=== PATIENT | male | born 1970 | race Caucasian/White ===

== ENCOUNTER 2018-02-15 15:18 | Emergency (ER) | payer SELFPAY ==
[~2018-02-15] VITALS: Ht 177.8 cm; Wt 77.1 kg
[~2018-02-15 15:18] MED LIST: HYDR1TAB PO; PRM25T PO
--- NOTE | 2018-02-15 16:04 | ED GU-Male ---
General Chief Complaint: -Male Stated Complaint: HERNIA Nursing Triage Note: TO ROOM REPORTS THAT HE HAS HAD R TESTICLE PAIN FOR 1 WEEKS AT TIME REPORTS IT FEEING OF IT BEING SUCKED UP INSIDE OF HIM. Source: patient Exam Limitations: no limitations (JACQUELINE RICHMOND) History of Present Illness Date Seen by Provider: Feb 15, 2018 Time Seen by Provider: 15:59 Initial Comments Patient is a 48-year-old male who presents to the emergency room with complaints of right sided testicle pain and swelling for 1 week. 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 He states that he feels like his right testicle is sucked up inside of him. Timing/Duration: week Severity/Quality: mild Location: right flank, groin Radiation: suprapubic, right flank Activities at Onset: none Associated Symptoms: No abdominal pain, No lower back pain, No nausea/vomiting , No urinary frequency (JACQUELINE RICHMOND) Allergies and Home Medications Allergies Coded Allergies: No Known Drug Allergies (Unverified , 01/13/11) Patient Home Medication List Home Medication List Reviewed: Yes (JACQUELINE RICHMOND) Review of Systems Constitutional: see HPI; No chills EENTM: see HPI; No ear discharge, No hearing loss Respiratory: No cough, No short of breath, No wheezing Cardiovascular: No chest pain, No edema, No syncope Gastrointestinal: see HPI, abdominal pain (RLQ), constipation (has had some mild constipation the past 2 weeks.); No diarrhea, No nausea, No vomiting Genitourinary: denies burning, denies discharge, denies dysuria, denies frequency, denies hematuria Musculoskeletal: No back pain, No joint pain, No neck pain Skin: see HPI; No change in color Psychiatric/Neurological: Denies Anxiety, Denies Depressed Endocrine: Denies See HPI, Denies Excessive Sweating Hematologic/Lymphatic: See HPI; Denies Anemia (JACQUELINE RICHMOND) All Other Systemes Reviewed Negative Unless Noted: Yes (JACQUELINE RICHMOND) Past Hxmphkn-Raaelo-Itfeyl Hx Past Med/Social Hx: Reviewed Nursing Past Med/Soc Hx (JACQUELINE RICHMOND) Past Med/Social Hx: Reviewed Nursing Past Med/Soc Hx (JV SIMS MD) Patient Social History Alcohol Use: Denies Use Recreational Drug Use: Yes (METH) Smoking Status: Current Everyday Smoker Recent Foreign Travel: No Contact w/Someone Who Travel: No Recent Infectious Disease Expo: No (JACQUELINE RICHMOND STUDENT) Past Medical History Surgeries: No Cardiac: No Genitourinary: No Endocrine: No Cancer: No Psychosocial: No Integumentary: No Blood Disorders: Yes (HEP C) (JACQUELINE RICHMOND STUDENT) Family Medical History Reviewed Nursing Family Hx (JACQUELINE RICHMOND) No Pertinent Family Hx (JV SIMS MD) Physical Exam Vital Signs Vital Signs - First Documented 02/15/18 15:44 Temp 98.0 Pulse 100 Resp 18 B/P (MAP) 175/99 (124) Pulse Ox 98 O2 Delivery Room Air (JV SIMS MD) Vital Signs Capillary Refill : Less Than 3 Seconds (JACQUELINE RICHMOND STUDENT) General Appearance: WD/WN, no apparent distress HEENT: normal ENT inspection, TMs normal, pharynx normal Neck: non-tender, full range of motion Cardiovascular: regular rate, rhythm, no edema, no gallop, no JVD, no murmur Respiratory: chest non-tender, lungs clear, normal breath sounds Gastrointestinal: non tender, soft Rectal: normal exam, normal rectal tone Male: normal genitalia, normal prostate (Prostate was not boggy or tender.), no hernia, inguinal tenderness (right side), testicular tenderness (right testicle) Back: normal inspection, no CVA tenderness, no vertebral tenderness Extremities: non-tender, normal inspection, no pedal edema Neurologic/Psychiatric: alert, normal mood/affect, oriented x 3 Skin: normal color Lymphatic: no adenopathy (JACQUELINE RICHMOND STUDENT) Cardiovascular: regular rate, rhythm, no murmur Respiratory: lungs clear, normal breath sounds Male: normal genitalia, inguinal tenderness (right side), testicular tenderness (right testicle), other (there does not appear to be cremasteric reflex on the right.) Neurologic/Psychiatric: alert, oriented x 3 Skin: normal color, warm/dry (JV SIMS MD) Progress/Results/Core Measures Suspected Sepsis Recent Fever Within 48 Hours: No Infection Criteria Present: None New/Unexplained Altered Menta: No Sepsis Screen: No Definite Risk SIRS Temperature:98.0 Pulse: 100 Respiratory Rate: 18 Blood Pressure 175 /99 Mean: 124 (JACQUELINE RICHMOND STUDENT) Results/Orders Lab Results Laboratory Tests Test 02/15/18 17:13 Range/Units Urine Color YELLOW Urine Clarity CLEAR Urine pH 6 5-9 Urine Specific [place] 1.025 H 1.016-1.022 Urine Protein NEGATIVE NEGATIVE Urine Glucose (UA) NEGATIVE NEGATIVE Urine Ketones NEGATIVE NEGATIVE Urine Nitrite NEGATIVE NEGATIVE Urine Bilirubin NEGATIVE NEGATIVE Urine Urobilinogen 1 NORMAL MG/DL Urine Leukocyte Esterase 1+ H NEGATIVE Urine RBC (Auto) NEGATIVE NEGATIVE Urine RBC RARE /HPF Urine WBC 0-2 /HPF Urine Crystals NONE /LPF Urine Bacteria NEGATIVE /HPF Urine Casts NONE /LPF Urine Mucus LARGE H /LPF Urine Culture Indicated NO (JV SIMS MD) My Orders Orders - JV SIMS MD Scrotum (Testicle) [id number] (02/15/18 15:48) Ua Culture If Indicated (02/15/18 15:54) Chlamydia Trachomatis Urine (02/15/18 17:25) Neis Vern Dna Urine Test (02/15/18 17:25) Ceftriaxone Injection (Rocephin Injectio (02/15/18 17:30) Rocephin 1000mg Im (02/15/18 17:45) Lidocaine 1% (Xylocaine 1%) (02/15/18 17:45) (JV SIMS MD) Vital Signs/I&O 02/15/18 15:44 Temp 98.0 Pulse 100 Resp 18 B/P (MAP) 175/99 (124) Pulse Ox 98 O2 Delivery Room Air (JV SIMS MD) Vital Signs/I&O Capillary Refill : Less Than 3 Seconds (JACQUELINE RICHMOND STUDENT) Blood Pressure Mean: 124 Progress Note : Progress Note I have seen and evaluated the patient and agree with above except as indicated. Have directed the plan of care. Patient is here with right testicular/groin pain. 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 Notes that it is dark urine. Denies nausea and vomiting. Denies fever or chills. Denies penile discharge or pain. He is in a stable monogamous relationship. He does not use protection. Has had decreased bowel movements recently. We will check a UA and ultrasound of the scrotum. 1730:*Ultrasound complete. Questionable epididymitis. Patient has difficulty with finances currently. We will give 1 g of Rocephin IM and continue outpatient treatment with ciprofloxacin for 10 days. We did discuss hydration. I will check for GC and chlamydia via urine DNA test and if positive we will initiate treatment as indicated when results were posted. Discharged home with return precautions. Patient verbalize understanding instructions and agreement with plan. (JV SIMS MD) Diagnostic Imaging Diagonstic Imaging: Ultrasound Comments NAME: ANDREW RODRIGUEZ [facility] REC#: [id number] PT STATUS: REG ER : 1970 PHYSICIAN: JV SIMS MD ADMIT DATE: 02/15/18/ER Draft Date of Exam:02/15/18 US SCROTUM (Testicle) [id number] COMPARISON: None. TECHNIQUE: Real-time ultrasound is performed. FINDINGS: RIGHT TESTICLE: Right testicle measures 4.5 cm x 2.2 cm x 3.5 cm and appears homogenous and no focal mass is seen. Doppler imaging demonstrates normal blood flow. There is a heterogeneous 5.8 cm x 2 7 m x 3.5 cm process seen lateral to the right testis which is moderately heterogeneous and somewhat vascular, possibly related to a severe epididymitis. This does not show any significant peristalsis and does not change with Valsalva. LEFT TESTICLE: The left testicle measures 3.37 m x 2.1 cm x 3.2 cm and appears unremarkable. Left epididymis appears unremarkable. Doppler imaging demonstrates normal blood flow to the left testis. ADDITIONAL FINDINGS: None. IMPRESSION: 1. Both testes appear unremarkable without evidence of focal mass or torsion 2. There appears to be moderately to severely enlarged heterogeneous right epididymis with some vascularity possibly related to epididymitis. 3. No additional abnormality is seen. Dictated on workstation # [id number] Dict: 02/15/18 1644 Trans: 02/15/18 1650 CV [id number] Interpreted by: LIZETH ZARCO DO Electronically signed by: (JACQUELINE RICHMOND STUDENT) Departure Impression Primary Impression: Epididymitis Disposition: 01 HOME, SELF-CARE Condition: Improved Departure-Patient Inst. Decision time for Depature: 17:40 (JV SIMS MD) Referrals: NO,LOCAL PHYSICIAN (PCP/Family) Primary Care Physician Patient Instructions: Epididymitis (DC) Scripts Ciprofloxacin HCl (Ciprofloxacin HCl) 500 Mg Tablet 500 MG PO BID, #20 TAB Prov: JV SIMS MD 02/15/18 JACQUELINE RICHMOND STUDENT Feb 15, 2018 16:04 JV SIMS MD Feb 15, 2018 17:40
--- NOTE | 2018-02-15 16:51 | Diagnostic Imaging Report ---
COMPARISON: None. TECHNIQUE: Real-time ultrasound is performed. FINDINGS: RIGHT TESTICLE: Right testicle measures 4.5 cm x 2.2 cm x 3.5 cm and appears homogenous and no focal mass is seen. Doppler imaging demonstrates normal blood flow. There is a heterogeneous 5.8 cm x 2 7 m x 3.5 cm process seen lateral to the right testis which is moderately heterogeneous and somewhat vascular, possibly related to a severe epididymitis. This does not show any significant peristalsis and does not change with Valsalva. LEFT TESTICLE: The left testicle measures 3.37 m x 2.1 cm x 3.2 cm and appears unremarkable. Left epididymis appears unremarkable. Doppler imaging demonstrates normal blood flow to the left testis. ADDITIONAL FINDINGS: None. IMPRESSION: 1. Both testes appear unremarkable without evidence of focal mass or torsion 2. There appears to be moderately to severely enlarged heterogeneous right epididymis with some vascularity possibly related to epididymitis. 3. No additional abnormality is seen. Dictated by: Dictated on workstation # [id number]
[2018-02-15 17:23] LABS: BILIRUBIN,URINE NEGATIVE (NEGATIVE); CLARITY,URINE CLEAR; COLOR,URINE YELLOW; GLUCOSE, URINE (UA) NEGATIVE (NEGATIVE); KETONES,URINE NEGATIVE (NEGATIVE); LEUKOCYTE ESTERASE ,URINE 1+ (NEGATIVE); NITRITE,URINE NEGATIVE (NEGATIVE); PH,URINE 6 (5-9); PROTEIN,URINE NEGATIVE (NEGATIVE); UROBILINOGEN,URINE 1 MG/DL (NORMAL)
[2018-02-15] MEDS ORDERED: cefTRIAXone INJECTION 1,000 MG in NS (IVPB) 50 ML IV ONE (17:30)
[2018-02-15 17:31] LABS: RBC,URINE RARE /HPF; WBC,URINE 0-2 /HPF
[2018-02-15 17:32] LABS: BACTERIA,URINE NEGATIVE /HPF
[2018-02-15] MEDS ORDERED: LIDOCAINE PF 1% 5 ML (XYLOCAINE) AMP ONE (17:41)
[2018-02-15] MEDS ORDERED: CIPR500T4 PO (17:41)
[2018-02-15] MEDS ORDERED: cefTRIAXone 1 GM (ROCEPHIN) VIAL IM ONE (17:45)
[2018-02-15] MEDS ORDERED: LIDOCAINE 1% INJ 50 ML (XYLOCAINE) VIAL IJ ONE (17:45)
[2018-02-15 18:03] VITALS: BP 175/99
--- OUTSIDE RECORDS SUMMARY | 2018-02-15 18:36 | XMS REPORT ---
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 Active 78769276 Problem Unspecified pruritic disorder 698.9 Active 072670829 ALLERGIES No Known Allergies ENCOUNTERS Encounter Location Date Diagnosis [facility] [address] [address] December, Acute bacterial conjunctivitis of left eye H10.32 [facility] [address] [address] December, Hordeolum internum left upper eyelid H00.024 [facility] [address] [place] [id number] [place] [address] Nov, Sore throat J02.9 and Post-nasal drainage R09.82 [facility] [address] [address] Aug, [facility] [address] [address] Jul, Suprapubic pain R10.2 ; Encounter for immunization Z23 and Constipation, unspecified constipation type K59.00 [facility] [address] [address] Nov, [facility] [address] [address] Nov, [facility] [address] [facility] [id number] [address] May, [facility] [address] [facility] [id number] [address] May, [facility] [address] [place] [id number] Apr, [facility] [address] [facility] [id number] [address] Mar, [facility] [address] [place], [place] [id number] Feb, [place] [address] [place], [place] [id number] Jan, IMMUNIZATIONS Vaccine Route Administration Date Status FLUARIX QUAD (3 AND UP) 2016 IM Intramuscular Aug 18, 2017 Administered SOCIAL HISTORY Never Assessed REASON FOR VISIT Abdominal pain for a couple weeks on and off constant for the last 2-3 days JStrasserRN PLAN OF CARE Activity Details Follow Up Establish care with a PCP SARAH Reason: VITAL SIGNS Height 71 in 2017-08-18 Weight 180.2 lbs 2017-08-18 Temperature 98.0 degrees Fahrenheit 2017-08-18 Heart Rate 92 bpm 2017-08-18 Respiratory Rate 22 2017-08-18 BMI 25.13 kg/m2 2017-08-18 Blood pressure systolic 130 mmHg 2017-08-18 Blood pressure diastolic 90 mmHg 2017-08-18 MEDICATIONS Medication Instructions Dosage Frequency Start Date End Date Duration Status trazodone 100 mg take 1 tablet by Oral route 1 time per day at bedtime Take at HS Feb, Not-Taking Amoxicillin 500 mg 2 capsule by Oral route 2 times per day for 10 day(s) Feb, Not-Taking buspirone 10 mg take 1 tablet by Oral route 3 times per day May, Not-Taking HydrOXYzine HCl 25 mg 1 tablet by Oral route 4 times per day PRN Jan Not-Taking RESULTS Name Result Date Reference Range UA LONG DIP (IN HOUSE) 2017-08-18 Lot # [id number] Exp date 07/28/2018 Clarity cloudy Color dk yellow Odor yes GLU neg ANNE-MARIE +1 KET trace SG 1.020 BLO neg pH 7.0 Protein +1 URO >=8.0 NIT neg AYESHA neg Lot # Exp date PROCEDURES Procedure Date Ordered Result Body Site URINALYSIS, AUTO, W/O SCOPE Aug 18, 2017 SINGLE IMMUNIZATION ADMIN Aug 18, 2017 FLUARIX QUAD (3 AND UP) 2016Aug 18, 2017 INSTRUCTIONS MEDICATIONS ADMINISTERED No Known Medications MEDICAL (GENERAL) HISTORY Type Description Date Medical History hepatitis c Medical History methamphetamine abuse
--- OUTSIDE RECORDS SUMMARY | 2018-02-15 18:36 | XMS REPORT | Continuity of Care Document ---
Author Author [facility] Address Unknown Phone Unavailable Allergies There is no data. Medications There is no data. Problems Date Dx Coded Attending Type Code Diagnosis Diagnosed By 02/13/2013 296.90 MOOD DISORDER 02/13/2013 698.9 UNSPECIFIED PRURITIC DISORDER 02/13/2013 MIRTA MONTALVO APRN 296.90 MOOD DISORDER 02/13/2013 MIRTA MONTALVO APRN 698.9 UNSPECIFIED PRURITIC DISORDER 03/27/2013 MIRTA MONTALVO APRN 523.31 AGGRESSIVE PERIODONTITIS LOCALIZED Procedures There is no data. Results There is no data. Encounters ACCT No. Visit Date/Time Discharge Status Pt. Type Provider Facility Loc./Unit Complaint [id number] 05/08/2013 09:20:00 05/08/2013 23:59:59 CLS Outpatient MIRTA MONTALVO APRN [id number] 02/13/2013 09:48:00 Document Registration
== END 2018-02-15 18:03 | disposition home or self-care (01) ==
LOC: EDUNIT# 15:18 → ER 15:20
DX: N45.1 Epididymitis (principal); F12.90 Cannabis use, unspecified, uncomplicated; F17.210 Nicotine dependence, cigarettes, uncomplicated; Z87.19 Personal history of other diseases of the digestive system
CPT/HCPCS: 36415; 76870; 81000; 87491; 87591; 96372

== ENCOUNTER 2022-07-02 13:05 | Emergency (ER) | payer SELFPAY ==
[~2022-07-02] VITALS: Ht 180 cm; Wt 83.4 kg
[~2022-07-02 13:05] MED LIST changes: +CIPR500T5 PO
--- NOTE | 2022-07-02 13:21 | ED Chest Pain ---
General Chief Complaint: Chest Pain Stated Complaint: CHEST PAINS Nursing Triage Note: PT AMB TO ED BY POV WITH C/O NON-RADIATING CP BEGINNING 0200 THIS MORNING. REPORTS HE WAS ASLEEP WHEN PAIN BEGAN, WORSE WITH MVMT. ALSO C/O SOB. Source: patient, family Exam Limitations: no limitations History of Present Illness Date Seen by Provider: Jul 02, 2022 Time Seen by Provider: 13:10 Initial Comments Andrew is a 52-year-old male who presents to the emergency room with a chief complaint of midsternal chest pain. He states that initially woke him up from sleep at about 2 AM. He states it has waxed and waned since that time, it seems to get worse with exertion, walking. He feels a little short of breath and gets a little "clammy". Pain does not radiate. He does not recall the last time he had a general medical exam. No diagnosis of hypertension, diabetes etc. He is a smoker. No family history of coronary artery disease and brothers, sisters, parents. He states at the time of his presentation to the ER he is asymptomatic. He went to [facility] prior to this ED visit and was noted to be quite hypertensive in the 160/100 range. He was not given aspirin prior to arrival. No recent illnesses such as fevers, chills, productive cough. He is COVID vaccinated. No problems with bowel or bladder. Timing/Duration: 12-24 hours Severity/Quality: pressure Location: central Radiation: no radiation Activities at Onset: sleep ASA po CLOUD SERVICES ARCHITECT: No NTG SL CLOUD SERVICES ARCHITECT: No Allergies and Home Medications Allergies Coded Allergies: No Known Drug Allergies (Unverified , 01/13/11) Patient Home Medication List Home Medication List Reviewed: Yes Ciprofloxacin HCl (Ciprofloxacin HCl) 500 Mg Tablet, 500 MG PO BID Prescribed by: JV SIMS on 02/15/18 5657 Review of Systems Review of Systems Constitutional: see HPI EENTM: No Symptoms Reported Respiratory: SOA With Exertion Cardiovascular: Chest Pain Gastrointestinal: No Symptoms Reported Genitourinary: No Symptoms Reported Musculoskeletal: no symptoms reported Skin: other ("Clammy" with pain) All Other Systems Reviewed Negative Unless Noted: Yes Past Cbszedw-Dvdqfl-Ydcnvr Hx Patient Social History Tobacco Use?: No Smoking Status: Former Smoker Use of E-Cig and/or Vaping dev: No Substance use?: Yes Substance type: Marijuana Substance frequency: Couple times a week Alcohol Use?: No Pt feels they are or have been: No Immunizations Up To Date Influenza Vaccine Up-to-Date: No; Not Current First/Initial COVID19 Vaccinat: 2020 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 oz. [id number]; 25.00 BMI Method:Stated General Appearance: No Apparent Distress Neck: Normal Inspection Respiratory: Lungs Clear, Normal Breath Sounds, No Accessory Muscle Use, No Respiratory Distress Cardiovascular: Regular Rate, Rhythm, Normal Peripheral Pulses Gastrointestinal: Normal Bowel Sounds, Non Tender, Soft Extremity: Normal Inspection Neurologic/Psychiatric: Alert, Oriented x3, No Motor/Sensory Deficits, Normal Mood/Affect, information resources director II-XII Norm as Tested Skin: Normal Color, Warm/Dry Progress/Results/Core Measures Results/Orders Lab Results Laboratory Tests Test 07/02/22 13:15 Range/Units White Blood Count 14.1 H 4.3-11.0 10^3/uL Red Blood Count 5.37 4.30-5.52 10^6/uL Hemoglobin 17.0 13.3-17.7 g/dL Hematocrit 50 40-54 % Mean Corpuscular Volume 93 80-99 fL Mean Corpuscular Hemoglobin 32 25-34 pg Mean Corpuscular Hemoglobin Concent 34 32-36 g/dL Red Cell Distribution Width 11.7 10.0-14.5 % Platelet Count 252 130-400 10^3/uL Mean Platelet Volume 9.2 9.0-12.2 fL Immature Granulocyte % (Auto) 0 % Neutrophils (%) (Auto) 79 H 42-75 % Lymphocytes (%) (Auto) 10 L 12-44 % Monocytes (%) (Auto) 9 0-12 % Eosinophils (%) (Auto) 1 0-10 % Basophils (%) (Auto) 0 0-10 % Neutrophils # (Auto) 11.1 H 1.8-7.8 10^3/uL Lymphocytes # (Auto) 1.5 1.0-4.0 10^3/uL Monocytes # (Auto) 1.3 H 0.0-1.0 10^3/uL Eosinophils # (Auto) 0.2 0.0-0.3 10^3/uL Basophils # (Auto) 0.0 0.0-0.1 10^3/uL Immature Granulocyte # (Auto) 0.1 0.0-0.1 10^3/uL Neutrophils % (Manual) 78 % Lymphocytes % (Manual) 8 % Monocytes % (Manual) 12 % Eosinophils % (Manual) 2 % Blood Morphology Comment NORMAL Prothrombin Time 13.3 12.2-14.7 SEC INR Comment 1.0 0.8-1.4 Activated Partial Thromboplast Time 34 24-35 SEC Sodium Level 140 135-145 MMOL/L Potassium Level 3.7 3.6-5.0 MMOL/L Chloride Level 104 98-107 MMOL/L Carbon Dioxide Level 25 21-32 MMOL/L Anion Gap 11 5-14 MMOL/L Blood Urea Nitrogen 11 7-18 MG/DL Creatinine 1.26 0.60-1.30 MG/DL Estimat Glomerular Filtration Rate 68 BUN/Creatinine Ratio 9 Glucose Level 145 H 70-105 MG/DL Calcium Level 10.0 8.5-10.1 MG/DL Corrected Calcium 9.6 8.5-10.1 MG/DL Magnesium Level 2.0 1.6-2.4 MG/DL Total Bilirubin 0.9 0.1-1.0 MG/DL Aspartate Amino Transf (AST/SGOT) 31 5-34 U/L Alanine Aminotransferase (ALT/SGPT) 45 0-55 U/L Alkaline Phosphatase 100 40-136 U/L Myoglobin 59.7 10.0-92.0 NG/ML Troponin I < 0.028 <0.028 NG/ML Total Protein 8.3 H 6.4-8.2 GM/DL Albumin 4.5 3.2-4.5 GM/DL My Orders Orders - ELISSA PARISI MD Cbc With Automated Diff (07/02/22 13:21) Magnesium (07/02/22 13:21) Chest 1 View, Ap/Pa Only (07/02/22 13:21) Ekg Tracing (07/02/22 13:21) Comprehensive Metabolic Panel (07/02/22 13:21) Myoglobin Serum (07/02/22 13:21) Protime With Inr (07/02/22 13:21) Partial Thromboplastin Time (07/02/22 13:21) O2 (07/02/22 13:21) Monitor-Rhythm Ecg Trace Only (07/02/22 13:21) Lipid Panel (07/03/22 06:00) Ed Iv/Invasive Line Start (07/02/22 13:21) Troponin I [place] (07/02/22 13:21) Aspirin Chewable Tablet (Baby Aspirin Ch (07/02/22 13:30) Manual Differential (07/02/22 13:15) Medications Given in ED Current Medications Medications Dose Ordered Sig/Merari Route Start Time Stop Time Status Last Admin Dose Admin Aspirin 324 mg ONCE ONCE PO 07/02/22 13:30 07/02/22 13:31 DC 07/02/22 13:28 324 MG Vital Signs/I&O 07/02/22 13:15 Temp 36.6 Pulse 116 Resp 17 B/P (MAP) 147/100 (116) Pulse Ox 96 O2 Delivery Room Air Blood Pressure Mean: 116 Progress Progress Note : Time: 14:25 Progress Note Patient seen and evaluated, midsternal chest pain nonradiating. Evaluation today includes a physical exam, CBC, chemistry, troponin, EKG and chest x-ray. Patient initially denied using any illicit substances however his nurse just came and let me know that he did do some methamphetamine yesterday. The patient did not wish to admit this in front of his earlier. His chest pain has resolved prior to coming to the emergency department. His work-up is unremarkable. He does remain somewhat hypertensive and tachycardic. Low clinical suspicion for acute pulmonary embolism. No leg swelling, calf cramping. No hypoxia. No hemoptysis. 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 No personal or family history of blood clot or coronary artery disease. His heart score would place him in the low risk profile for acute coronary syndrome. We will refer him to Dr. Cerna who is on-call for cardiac follow-up. He also needs to follow-up with [facility] for further management of his high blood pressure. The patient is encouraged to not use methamphetamine as it can cause the symptoms he experienced last night and this morning. Return precautions provided. All questions are sought and answered. Initial ECG Impression Date: Jul 02, 2022 Initial ECG Impression Time: 13:25 Initial ECG Rate: 108 Initial ECG Rhythm: S.Tach Initial ECG Intervals: Normal Initial ECG Impression: Nonspecific Changes Diagnostic Imaging Diagonstic Imaging: Xray Comments [facility], [place] NAME: ANDREW RODRIGUEZ [facility] REC#: [id number] PT STATUS: REG ER : 1970 PHYSICIAN: ELISSA PARISI MD ADMIT DATE: 07/02/22/ER Draft Date of Exam:07/02/22 CHEST 1 VIEW, AP/PA ONLY INDICATION: Chest pain starting earlier this morning. Worse with movement. Shortness of breath. EXAMINATION: Chest, 07/02/2022. FINDINGS: Single view chest. There are coarsened markings throughout both lungs consistent with atelectasis or scar. No focal infiltrates appreciated. The heart is unremarkable. Pulmonary vasculature is congested. There are no effusions. There is no pneumothorax. IMPRESSION: 1. Chronic findings with no superimposed acute cardiopulmonary process. Dictated on workstation # [id number] Dict: 07/02/22 1356 Trans: 07/02/22 1359 [id number] Interpreted by: ELIZABETH BUTCHER MD Electronically signed by: Counseling-Symptomatic: 3-10 Minutes Follow-up with PCP to: Discuss Further Options Departure Impression Primary Impression: Chest pain Qualified Codes: R07.9 - Chest pain, unspecified Disposition: 01 HOME, SELF-CARE Condition: Stable Departure-Patient Inst. Decision time for Depature: 14:28 Referrals: [facility]/ANAIS JEAN MD NO,LOCAL PHYSICIAN (PCP) Primary Care Physician Patient Instructions: Chest Pain That Is Not Caused by the Heart (DC) Add. Discharge Instructions: Continue to follow-up with [facility] to get established with a primary care provider. Your blood pressure was very high today and likely will need treatment in the future. You should stop smoking because this will decrease your risk of having a heart attack. I have given you contact information for the heart doctor on-call. You should call the office for a follow-up appointment. They may determine that you need a stress test to further evaluate the chest pain you had today. If you have a return of the chest pain like last night especially with nausea, sweating, shortness of breath or change in location of the pain please come back to the emergency room while you are having the pain for reevaluation. Take a daily baby aspirin. ELISSA PARISI MD Jul 02, 2022 13:21
[2022-07-02 13:30] LABS: BASOPHILS % (AUTO) 0 % (0-10); EOSINOPHILS # (AUTO) 0.2 10^3/uL (0.0-0.3); EOSINOPHILS % (AUTO) 1 % (0-10); HEMATOCRIT 50 % (40-54); LYMPHOCYTES # (AUTO) 1.5 10^3/uL (1.0-4.0); LYMPHOCYTES % (AUTO) 10 % (12-44); MEAN CORPUSCULAR HEMOGLOBIN 32 pg (25-34); MEAN CORPUSCULAR HGB CONC 34 g/dL (32-36); MEAN CORPUSCULAR VOLUME 93 fL (80-99); MEAN PLATELET VOLUME 9.2 fL (9.0-12.2); MONOCYTES # (AUTO) 1.3 10^3/uL (0.0-1.0); MONOCYTES % (AUTO) 9 % (0-12); NEUTROPHILS # (AUTO) 11.1 10^3/uL (1.8-7.8); NEUTROPHILS % (AUTO) 79 % (42-75); PLATELET COUNT 252 10^3/uL (130-400); WHITE BLOOD COUNT 14.1 10^3/uL (4.3-11.0)
[2022-07-02] MEDS ORDERED: ASPIRIN 81 MG CHEW (CHILDREN'S ASA) PO ONE (13:30)
[2022-07-02 13:44] LABS: ALBUMIN 4.5 GM/DL (3.2-4.5); POTASSIUM 3.7 MMOL/L (3.6-5.0)
[2022-07-02 13:47] LABS: TOTAL PROTEIN 8.3 GM/DL (6.4-8.2)
[2022-07-02 13:48] LABS: BILIRUBIN,TOTAL 0.9 MG/DL (0.1-1.0)
[2022-07-02 13:50] LABS: CREATININE SERUM 1.26 MG/DL (0.60-1.30)
[2022-07-02 13:51] LABS: EOSINOPHILS % (MANUAL) 2 %; LYMPHOCYTES % (MANUAL) 8 %; MONOCYTES % (MANUAL) 12 %; NEUTROPHILS % (MANUAL) 78 %; RBC MORPH NORMAL
[2022-07-02 13:54] LABS: PROTHROMBIN TIME PATIENT 13.3 SEC (12.2-14.7)
--- NOTE | 2022-07-02 13:59 | Diagnostic Imaging Report ---
INDICATION: Chest pain starting earlier this morning. Worse with movement. Shortness of breath. EXAMINATION: Chest, 07/02/2022. FINDINGS: Single view chest. There are coarsened markings throughout both lungs consistent with atelectasis or scar. No focal infiltrates appreciated. The heart is unremarkable. Pulmonary vasculature is congested. There are no effusions. There is no pneumothorax. IMPRESSION: 1. Chronic findings with no superimposed acute cardiopulmonary process. Dictated by: Dictated on workstation # [id number]
[2022-07-02 14:45] VITALS: BP 137/95
== END 2022-07-02 14:45 | disposition home or self-care (01) ==
LOC: EDUNIT# 13:05 → ER 13:07
DX: R07.2 Precordial pain (principal); I10 Essential (primary) hypertension; Z87.891 Personal history of nicotine dependence; Z28.311 Partially vaccinated for COVID-19
CPT/HCPCS: 36415; 71045; 80053; 83735; 83874; 84484; 85007; 85027; 85610; 85730; 93005; 93041